=== PATIENT | male | born 1955 | race Hispanic/Latino ===

== ENCOUNTER 2017-04-05 08:39 | Day surgery (SDC) | payer BC ==
[2017-03-28 08:51] VITALS: BMI 26.6
[2017-04-05] MEDS ORDERED: Bupivacaine-Epi 0.25%-1:200,000 PF Inj ONE (09:53)
[2017-04-05] MEDS ORDERED: Bupivacaine 0.5% Inj(30mL) ONE (09:54)
[2017-04-05] MEDS ORDERED: ceFAZolin IV 2 gm in Dextrose 1 GM/50 ML BAG IVPB ONE (09:54)
[2017-04-05] MEDS ORDERED: Lidocaine 1% Inj (20ml) ONE (09:54)
[2017-04-05] MEDS ORDERED: Midazolam 2 MG/2 ML VIAL ONE (10:00)
[2017-04-05] MEDS ORDERED: Propofol 10 mg/ml Inj (20 ML) ONE (10:00)
[2017-04-05] MEDS ORDERED: Lactated Ringer's 1,000 ML IV ONE ×2 (10:20→13:27)
[2017-04-05] MEDS ORDERED: Bupivacaine HCl 0.25% PF (10 ml) Inj ONE (11:09)
[2017-04-05] MEDS ORDERED: Morphine 4 MG/ML VIAL ONE (12:32)
[2017-04-05] MEDS ORDERED: HYDROmorphone 0.5 mg/0.5 ml ISec IVP PRN (13:32)
--- NOTE | 2017-04-05 13:36 | PCM.SURG1 ---
Surgeon's Initial Post Op Note - Surgeon's Notes Surgeon: Dr. Lerma Software Quality Specialist: Dr. Lavern Zazueta PGY2 Type of Anesthesia: General Endo Pre-Operative Diagnosis: Right inguinal hernia Operative Findings: see dictation Post-Operative Diagnosis: B/L inguinal hernia repair Operation Performed: robot-assisted laparoscopic B/L inguinal hernia repair Specimen/Specimens Removed: Left lipoma of cord; Right lipoma of cord Estimated Blood Loss: EBL {In ML}: 10 Blood Products Given: N/A Drains Used: No Drains Post-Op Condition: Good Date of Surgery/Procedure: 04/05/17 Time of Surgery/Procedure: 10:20
--- NOTE | 2017-04-05 14:47 | OP ---
PROCEDURE DATE: 04/05/2017 PREOPERATIVE DIAGNOSIS: Right inguinal hernia possible bilateral inguinal hernia. POSTOPERATIVE DIAGNOSES: 1. Right indirect and direct inguinal hernia. 2. Left direct and very small indirect inguinal hernia. 3. Lipoma of the right spermatic cord, large. 4. Lipoma of the left spermatic cord, small. PROCEDURE: 1. Robotic Right inguinal hernia with mesh. 2. Robotic Left inguinal hernia repair with mesh 3. Robotic Excision of Lipoma of the right spermatic cord, large. 4. Robotici Excision of Lipoma of the left spermatic cord, small.. SURGEON: Aden Lerma MD COFFEE GROWER: PEDRO Swift and Jeri Puckett PGY-2 resident. TYPE OF ANESTHESIA: General endotracheal tube anesthesia. ESTIMATED BLOOD LOSS: Around 10 mL. DRAIN: None. PATHOLOGY: 1. Lipoma of the right spermatic cord. 2. Lipoma of the left spermatic cord. COMPLICATIONS: None. INTRAOPERATIVE FINDINGS: The patient had right direct and indirect inguinal hernia containing large lipoma of the spermatic cord and the patient also had lipoma of the cord of the left side and the patient had large direct defect and very small indirect defect. DESCRIPTION OF PROCEDURE: On intraoperative steps, this 62-year-old male who was diagnosed with right inguinal hernia and the patient was also complaining of the left groin pain as well as very small bulge and the patient was concerning for the robotic right inguinal hernia repair with the mesh possible bilateral repair, brought to the OR, and placed on operating table. After induction of the anesthesia, abdomen was prepped and draped in usual sterile fashion. The Oropeza catheter was placed and supraumbilical transverse incision was made after incising skin and subcutaneous tissue. The fascia was incised. A robotic camera port was placed and Pneumo was created. Another three 8-mm port was placed in the upper abdomen, the robot was brought in, camera arm, as well as arm 1 and arm 2 was docked and the patient was placed in steep Trendelenburg position before docking the robot. The peritoneum of the right side was resected starting from the right ASIS up to the mid line and dissection was carried down up to the pubic symphysis and space of Retzius. The patient found to have defect on the left side also and now the peritoneal incision was carried down up to the left anterior and superior iliac spine and dissection was carried down medially up to the space of Retzius on the left side and now the right inguinal region was dissected. The peritoneum of the lateral pelvic wall was dissected free and the vas deference and the spermatic cord vessel was dissected and hernial sac was reduced back into peritoneal cavity. The patient was found to have a large lipoma of the cord and that was also reflected and it was sent off the table for the pathology. Now the peritoneum of the left pelvic wall was also dissected and vas deference and spermatic cord vessels were identified and the peritoneal reflection inferiorly was dissected up to the pelvic brim and now the right anatomical mass as well as left anatomical mass was placed and both mesh was implanted after proper implantation of the mesh. The peritoneum was sutured with 0 Vicryl interrupted suture as well as 3-0 Vicryl continuous V-lock sutures and all the specimen was sent off the table for pathology. The lipoma of the left spermatic cord that was very small was also excised and it was sent off the table for the pathology. After removing all the instruments, the robot was undocked, all the port was taken out under vision and Pneumo was deflated. Umbilical port site was closed in two layers, fascia with 0 Vicryl interrupted sutures, skin with a 4-0 Monocryl, and dry sterile dressing was applied. The patient tolerated the procedure well. Count of the instrument and gauze was correct. There was no apparent complication. The patient was extubated in OR and sent to the postanesthesia care unit in stable condition. The Anesthesia team gave the TAP block after completion of the procedure. Aden Lerma MD TRUDY
[2017-04-05 15:30] VITALS: RESP 18
[2017-04-05 16:31] VITALS: BP 132/82; PULSE 76; TEMP 97.8; O2SAT 97
== END 2017-04-05 16:50 | disposition home or self-care (01) ==
LOC: C.SDS 08:39
PROVIDERS: ATTEND Surgery Surgical Critical Care
DX: K40.90 Unilateral inguinal hernia, without obstruction or gangrene, not specified as recurrent (principal); K40.20 Bilateral inguinal hernia, without obstruction or gangrene, not specified as recurrent; D17.6 Benign lipomatous neoplasm of spermatic cord
CPT/HCPCS: 49650; 55520; 88304; C1781; J0690; J1100; J2250; J2270; J2704; J3010; J7120